=== PATIENT | female | born 1990 | race Caucasian/White ===

== ENCOUNTER 2025-06-09 09:08 | Outpatient (CLI) | payer OTHER, SELFPAY | END 2025-06-09 09:09 | disposition home or self-care (01) | PROVIDERS: Visit Provider Physician Assistant Medical | DX: F32.A Depression, unspecified (principal); F41.9 Anxiety disorder, unspecified; G47.9 Sleep disorder, unspecified | CPT/HCPCS: 82306; 82728; 84443 ==